=== PATIENT | female | born 1995 | race Caucasian/White ===

== ENCOUNTER 2024-03-15 11:51 | Emergency (ER) | payer OTHER, MEDICAID, SELFPAY ==
[2024-03-15 11:52] VITALS: BMI 34.9
[2024-03-15 12:29] VITALS: BP 138/88; PULSE 80; RESP 18; TEMP 36.7; O2SAT 97; BMI 41.5
--- NOTE | 2024-03-15 12:32 | XR_ITS ---
Examination: Pelvic ultrasound, transabdominal, complete Technique: Transabdominal ultrasound of the pelvis performed using grayscale imaging Date and time of exam: March 15, 2024 1334 hours INDICATIONS: Pelvic pain beginning one week ago FINDINGS: Uterus 9.1 x 4.1 x 5.4 cm No uterine mass or intrauterine gestation Endometrial stripe 0.5 cm Ovaries obscured by bowel gas IMPRESSION: Limited study No uterine mass or intrauterine gestation
[2024-03-15 12:44] LABS: Basophils % (Auto) 0 % (0-2.5); Eosinophils # (Auto) 0.1 Thou/mm3 (0.0-0.5); Eosinophils % (Auto) 1 % (0-10); Hematocrit 39.5 % (36.0-46.0); Hemoglobin 13.5 g/dL (12.0-16.0); Immature Granulocytes % (Auto) 0 % (0-0); Immature Granulocytes Auto 0.03 Thou/mm3 (0.00-0.00); Lymphocytes # (Auto) 2.8 Thou/mm3 (1.0-4.8); Lymphocytes % (Auto) 26 % (10-50); Mean Corpuscular HGB Conc 34.2 g/dl (31.0-37.0); Mean Corpuscular Hemoglobin 29.5 pg (25.0-35.0); Mean Corpuscular Volume 86 fL (80-100); Monocytes # (Auto) 0.7 Thou/mm3 (0.0-0.8); Monocytes % (Auto) 6 % (0-12); Neutrophils % (Auto) 66 % (37-80); Nucleated Red Blood Cell % 0 /100 WBC (0); Platelet Count 352 Thou/mm3 (140-440); RDW Standard Deviation 40.6 fL (36.4-46.3); Red Blood Count 4.57 Miln/mm3 (4.00-5.20); White Blood Count 10.6 Thou/mm3 (3.6-11.0)
[2024-03-15 13:04] LABS: Alanine Aminotransferase 19 U/L (10-49); Albumin, Serum 4.7 gm/dL (3.5-5.0); Albumin/Globulin Ratio 1.7 (1.2-2.2); Alkaline Phosphatase 81 U/L (46-116); Anion Gap 8 (7-16); Aspartate Amino Transferase 26 U/L (0-34); BUN/Creatinine Ratio 10 Ratio (12-20); Bilirubin,Total 0.4 mg/dL (0.3-1.2); Blood Urea Nitrogen 9 mg/dL (9-23); Calcium 9.4 mg/dL (8.3-10.6); Calcium (Corrected) 9.4 mg/dL (8.5-10.1); Carbon Dioxide 23.7 mMol/L (20.0-31.0); Chloride 106 mMol/L (98-107); Creatinine (Component) 0.9 mg/dL (0.6-1.3); Estimated Creatinine Clearance 116.7 mL/min (>60); Globulin 2.8 gm/dL (2.3-3.5); Glucose 90 mg/dL (74-106); Lipase 40 U/L (12-53); Osmolality,Calculated 274 (275-295); Potassium 3.9 mMol/L (3.4-5.1); Sodium 138 mMol/L (136-145); Total Protein 7.5 gm/dL (5.7-8.2); eGFR > 60 See Note
[2024-03-15 15:35] VITALS: BP 154/80; PULSE 72; RESP 18; TEMP 36.8; O2SAT 99
[2024-03-15 16:06] LABS: Collection Type, Urine Clean Catch
[2024-03-15 16:10] LABS: Bilirubin,Urine Negative (Negative); Blood,Urine 1+ (Negative); Clarity,Urine Clear (Clear/Hazy); Color,Urine Lt-Yellow (Lt Yel-Yel); Glucose, Urine Negative (Negative); Ketones,Urine 1+ (Negative); Leukocyte Esterase,Urine Positive (Negative); Nitrite,Urine Positive (Negative); Protein,Urine Negative (Neg - Trace); RBC,Urine 3 /hpf (0-3); Specific Gravity,Urine 1.018 (1.001-1.035); Squamous Epithelial Cell,Urine 3 /hpf (0-5); Urobilinogen,Urine Negative mg/dL (0.0-1.0); WBC,Urine 3 /hpf (0-5)
[2024-03-15 16:24] LABS: HCG Qualitative,Urine Negative
[2024-03-15 16:58] LABS: Culture Indicated,Urine Yes
--- NOTE | 2024-03-15 17:22 | EDNOTE_ITS ---
ED Abdominal Pain RME/HPI General Chief Complaint: Abdominal Pain Stated complaint: ABD. PAIN, VAG SPOTING, NAUSEA Time seen by provider: 03/15/24 12:06 Arrival date/time: 03/15/24 11:51 29-year-old female presents to the emergency department today complaints of pelvic pain and vaginal spotting as well as nausea ongoing for the last couple of days Limitations: no limitations Related Data Home Medications ?Medication ?Instructions ?Recorded ?Confirmed desogestrel 0.15 mg-ethinyl 1 tab PO QDAY 12/02/22 12/02/22 estradiol 0.03 mg tablet (Enskyce) hydroxyzine HCl 50 mg tablet 50 mg PO DAILY 12/02/22 12/02/22 sertraline 100 mg tablet 100 mg PO QDAY 12/02/22 12/02/22 Previous Rx's ?Medication ?Instructions ?Recorded acetaminophen 300 mg-codeine 15 mg 1 tab PO Q12H PRN pain #10 tabs 12/03/22 tablet acetaminophen 500 mg tablet 500 mg PO Q6H PRN fever or pain 12/03/22 #20 tabs ibuprofen 600 mg tablet 600 mg PO TID #20 tabs 12/03/22 ciprofloxacin HCl 500 mg tablet 500 mg PO BID 7 days #14 tabs 03/15/24 ibuprofen 600 mg tablet 600 mg PO Q6H #30 tabs 03/15/24 Allergies Allergy/AdvReac Type Severity Reaction Status Date / Time No Known Allergies Allergy Verified 03/15/24 11:54 Review of Systems Review of Systems Systems Reviewed: All systems reviewed, normal except as documented Constitutional Constitutional: Reports system reviewed and no additional complaints, except as documented, Denies fever(s) and Denies headache(s) Eyes Eyes: Reports system reviewed and no additional complaints, except as documented and Denies blurry vision ENT Ears, Nose, Mouth, and Throat: Reports system reviewed and no additional complaints, except as documented, Denies headache(s), Denies nasal congestion and Denies nasal discharge Cardiovascular Cardiovascular: Reports system reviewed and no additional complaints, except as documented, Denies chest pain and Denies dyspnea Respiratory Respiratory: Reports system reviewed and no additional complaints, except as documented, Denies chest congestion, Denies cough and Denies dyspnea Gastrointestinal Gastrointestinal: Reports system reviewed and no additional complaints, except as documented and Denies abdominal pain Genitourinary Genitourinary: Reports system reviewed and no additional complaints, except as documented, Reports abnormal vaginal bleeding, Reports dysuria, Denies flank pain and Reports pelvic pain Integumentary/Breasts Skin/Breast: Reports system reviewed and no additional complaints, except as documented and Denies rash Neurologic Neurologic: Reports system reviewed and no additional complaints, except as documented, Reports as per HPI and Denies headache(s) Past Medical History Past Medical History NEUROLOGIC: Negative Neurological Disorders CARDIAC: Negative Cardiac Disorders ED Exam General Limitations: Present no limitations General appearance: Present alert and in no apparent distress Head Head exam: Present atraumatic, normocephalic and normal inspection Eye Eye exam: Present normal appearance, PERRL and EOMI; Absent conjunctival injection ENT ENT exam: Present normal exam, normal oropharynx and mucous membranes moist Neck Neck exam: Present normal inspection, full ROM and trachea midline Chest Chest inspection: Present normal inspection and symmetric chest wall rise Respiratory Respiratory exam: Present normal lung sounds bilaterally; Absent respiratory distress Cardiovascular Cardiovascular exam: Present regular rate, normal rhythm and normal heart sounds Abdominal Exam Abdominal exam: Present soft and normal bowel sounds; Absent distention, tenderness, guarding, rebound or rigidity Extremities Exam Extremities exam: Present normal inspection and full ROM Back Exam Back exam: Present normal inspection and full ROM Neurological Exam Neurological exam: Present alert, oriented X3 and CN II-XII intact Psychiatric Psychiatric exam: Present normal affect and normal mood Skin Skin exam: Present warm, dry, intact and normal color Course Quality Measures none Orders Category Date Time Status US pelvic complete Stat Exams 03/15/24 12:32 Completed CBC Stat Lab 03/15/24 12:36 Completed Chlamydia/GC/TV - PCR Stat Lab 03/15/24 15:46 Received Comprehensive Metabolic Panel Stat Lab 03/15/24 12:36 Completed HCG Qualitative,Urine Stat Lab 03/15/24 15:46 Completed Lipase Stat Lab 03/15/24 12:36 Completed UA, C/S IF [Urinalysis, C/S if Indicated] Stat Lab 03/15/24 15:46 Completed Urine Culture Stat Lab 03/15/24 15:46 Received Vital Signs Vital signs: Vital Signs Temperature 98.1 F 03/15/24 12:29 Pulse Rate 80 03/15/24 12:29 Respiratory Rate 18 03/15/24 12:29 Blood Pressure 138/88 H 03/15/24 12:29 Pulse Oximetry (%) 97 03/15/24 12:29 Oxygen Delivery Method Room Air 03/15/24 12:29 O2 saturation 97% room air within normal limits Abdominal Pain MDM MDM Narrative MDM Narrative:: 29-year-old female presents to the emergency department today complaints of pelvic pain and vaginal spotting as well as nausea ongoing for the last couple of days On exam patient does not appear ill or toxic patient's not appear in acute distress Lab work obtained no acute emergent findings noted Imaging obtained no acute emergent findings noted Patient be treated with course of antibiotics and pain medication GC and Chlamydia is pending Patient discharged home in no distress to follow-up with primary care doctor in the next 24 to 48 hours and for any worsening symptoms to return to the ER immediately Patient data External records reviewed:: [facility] previous records Clinical information provided by:: patient Social determinants that could affect healthcare access:: none Patient has the following chronic illnesses:: None How is presenting disease/condition affected by chronic disease/condition?: no chronic disease Evaluation data The following diagnostics were reviewed and interpreted by me:: lab results and radiology exam(s) Lab and/or radiology exams considered but not ordered:: Labs radiology obtained Interpretation Summary: Reviewed by me Medications / Prescriptions Medications or Prescriptions considered but not ordered:: Given Medication administrations:: Given Consultations Consultation(s) initiated? (list below): No Diagnosis Differential diagnosis abdominal pain: abdominal pain, constipation, diverticulitis, endometriosis, gastroenteritis and pancreatitis Most likely diagnosis given after review of the tests above:: Abdominal pain Admission Indicated Admission indicated?: not indicated Admission Request Was there a request for admission?: No Disposition Plan Disposition Plan: Discharge Discharge Attestation Discharge Attestation: The patient and all family members were given an opportunity to ask questions and understood the discharge instructions. Discharge instructions specifically effects, indications for sooner follow up or return to the emergency department, and the expected course of current diagnosis. Patient condition: Stable Discharge Plan Plan Patient Disposition: HOME (Self Care) Disposition Comment: Stable Prescriptions/Referrals Prescriptions/Med Rec: New ciprofloxacin HCl 500 mg tablet 500 mg PO BID 7 Days Qty: 14 0RF ibuprofen 600 mg tablet 600 mg PO Q6H Qty: 30 0RF No Action desogestrel-ethinyl estradiol [Enskyce] 0.15-0.03 mg Tablet 1 tab PO QDAY sertraline 100 mg Tablet 100 mg PO QDAY hydroxyzine HCl 50 mg Tablet 50 mg PO DAILY acetaminophen-codeine 300-15 mg tablet 1 tab PO Q12H PRN (Reason: pain) Qty: 10 0RF ibuprofen 600 mg tablet 600 mg PO TID Qty: 20 0RF acetaminophen 500 mg tablet 500 mg PO Q6H PRN (Reason: fever or pain) Qty: 20 0RF Referrals: Boone Fernandez MD [Primary Care Provider] - 03/16/24 Problem List Clinical Impression: Abdominal pain, Pelvic pain Patient/Caregiver Discharge Instructions Education Materials: Abdominal Pain Additional Instructions: Please follow up with your primary care doctor in the next 24-48hrs for any worsening symptoms return here immediately Print Language: Swedish Stand Alone Forms: Julianne Award Info., Work/School Release, Patient Portal Info Letter 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 Vera
[2024-03-16 17:05] LABS: Chlamydia trachomatis PCR Negative (Not Detect); Neisseria Gonorrhoeae DNA PCR Negative (Not Detect); Trichomonas Negative (Negative)
== END 2024-03-15 18:19 | disposition home or self-care (01) ==
PROVIDERS: Nurse Practitioner Primary Care; Emergency Provider Emergency Medicine; PCP Family Medicine
DX: R10.2 Pelvic and perineal pain (principal)
CPT/HCPCS: 36415; 76856; 80053; 81001; 81025; 83690; 85025; 87086; 87491; 87591; 87661; 99284

== ENCOUNTER 2024-08-03 16:39 | Observation (INO) | payer OTHER, MEDICAID, SELFPAY ==
[2024-08-03 16:57] VITALS: BP 123/85; PULSE 130; RESP 20; TEMP 39.3; O2SAT 97
--- NOTE | 2024-08-03 17:12 | XR_ITS ---
Examination: PA lateral chest 2 views TECHNIQUE: Upright PA and lateral chest 2 views Standing flank line August 03, 2024 10:19 PM INDICATIONS: Vomiting and fever today. FINDINGS: Normal heart size. Lungs are clear. The osseous structures are intact IMPRESSION: No active disease
--- NOTE | 2024-08-03 17:12 | PD.EDRME ---
Rapid Medical Screening Exam RME Arrival date/time: 08/03/24 16:39 29-year-old female presents to the Emergency Department for complaint of nausea and vomiting and abdominal pain as well as fever today Chief Complaint: Fever Time Seen by Provider: 08/03/24 16:54 Vital signs: Vital Signs Temperature 102.8 F H 08/03/24 16:57 Pulse Rate 130 H 08/03/24 16:57 Respiratory Rate 20 08/03/24 16:57 Blood Pressure 123/85 H 08/03/24 16:57 Pulse Oximetry (%) 97 08/03/24 16:57 Oxygen Delivery Method Room Air 08/03/24 16:57
[2024-08-03 17:18] VITALS: TEMP 39.3
[2024-08-03] MEDS: ACETAMINOPHEN 500 MG TABLET 1000 MG PO (17:18)
[2024-08-03] MEDS: SODIUM CHLORIDE 0.9% 1000 ML 1,000 ML 999 ML IV (18:06)
[2024-08-03] MEDS: ONDANSETRON INJ 2 MG/ML INJ 2 ML 4 MG IV (18:06)
[2024-08-03 18:17] VITALS: BP 113/72; PULSE 102; RESP 26; TEMP 37.6; O2SAT 96
[2024-08-03 18:20] LABS: Basophils % (Auto) 0 % (0-2.5); Eosinophils % (Auto) 0 % (0-10); Hematocrit 42.5 % (36.0-46.0); Hemoglobin 15.1 g/dL (12.0-16.0); Immature Granulocytes % (Auto) 0 % (0-0); Immature Granulocytes Auto 0.03 Thou/mm3 (0.00-0.00); Lymphocytes # (Auto) 0.5 Thou/mm3 (1.0-4.8); Lymphocytes % (Auto) 4 % (10-50); Mean Corpuscular HGB Conc 35.5 g/dl (31.0-37.0); Mean Corpuscular Hemoglobin 29.8 pg (25.0-35.0); Mean Corpuscular Volume 84 fL (80-100); Monocytes # (Auto) 0.3 Thou/mm3 (0.0-0.8); Monocytes % (Auto) 3 % (0-12); Neutrophils # (Auto) 10.5 Thou/mm3 (1.8-7.7); Neutrophils % (Auto) 93 % (37-80); Nucleated Red Blood Cell % 0 /100 WBC (0); Platelet Count 315 Thou/mm3 (140-440); RDW Standard Deviation 39.7 fL (36.4-46.3); Red Blood Count 5.06 Miln/mm3 (4.00-5.20); White Blood Count 11.4 Thou/mm3 (3.6-11.0)
[2024-08-03 18:32] LABS: Alanine Aminotransferase 20 U/L (10-49); Albumin, Serum 4.4 gm/dL (3.5-5.0); Albumin/Globulin Ratio 1.8 (1.2-2.2); Alkaline Phosphatase 100 U/L (46-116); Anion Gap 10 (7-16); Aspartate Amino Transferase 20 U/L (0-34); BUN/Creatinine Ratio 10 Ratio (12-20); Bilirubin,Total 0.7 mg/dL (0.3-1.2); Blood Urea Nitrogen 9 mg/dL (9-23); Calcium 8.7 mg/dL (8.3-10.6); Calcium (Corrected) 8.7 mg/dL (8.5-10.1); Carbon Dioxide 24.3 mMol/L (20.0-31.0); Chloride 107 mMol/L (98-107); Creatinine (Component) 0.9 mg/dL (0.6-1.3); Estimated Creatinine Clearance 118.9 mL/min (>60); Globulin 2.4 gm/dL (2.3-3.5); Glucose 128 mg/dL (74-106); Lipase 27 U/L (12-53); Osmolality,Calculated 281 (275-295); Potassium 3.7 mMol/L (3.4-5.1); Procalcitonin 0.18 ng/ml (0.0-0.49); Sodium 141 mMol/L (136-145); Total Protein 6.8 gm/dL (5.7-8.2); eGFR > 60 See Note
--- NOTE | 2024-08-03 18:39 | XR_ITS ---
Examination: CT abdomen with intravenous contrast CT pelvis with intravenous contrast 2-D coronal reconstructions 2-D sagittal reconstructions Date and time of exam:August 03, 2024 2107 hours Comparison March 28, 2023 INDICATION: Vomiting beginning 13 hours ago. CTDI: vol (mGy) 15.6 DLP: (mGycm) 901 Technique: Multiple axial sections of the abdomen and pelvis have been obtained. 64 slice high-resolution scanner used. 3 mm axial sections have been obtained, post intravenous injection 60 cc Isovue 370 2-D sagittal, coronal reconstructions obtained. Low dose protocols were performed. One or more of the following dose reduction techniques were used; automated exposure control, adjustment of the mA and/or KV according to patient size, use of iterative reconstruction technique. Findings: No focal liver or splenic lesions No gallstones No pancreatic or adrenal mass No renal or ureteral calculi, no hydronephrosis. No bowel obstruction Normal appendix No diverticulitis Urinary bladder intact No pelvic mass IMPRESSION: Normal appendix. No bowel obstruction or acute process in the abdomen
--- NOTE | 2024-08-03 18:42 | PD.EDADULT ---
ED General RME/HPI General Chief complaint: Fever Stated complaint: VOMITING X 13 HRS, FEVER 101.4, ABD CRAMPING Time Seen by Provider: 08/03/24 16:54 Arrival date/time: 08/03/24 16:39 RME / HPI RME / HPI narrative: This patient is a 29-year-old female with no significant past medical history presented to the ED on 08/03/2024 with chief complaint of 1 day history of nausea/vomiting/fever spikes associated with abdominal discomfort. Patient reported that she ate yesterday from [employer] and started having vomiting episodes. She almost vomited more than 10?15 episodes with some blood. She also has abdominal discomfort mainly in the epigastric region and lower pelvic tenderness. She rated her pain as 2/10 since she got pain medication it is crunching intermittent in nature per patient associated with movement and radiating to her back. She denies any loose stools and her last bowel movement was yesterday which was formed stool. She is not passing gas today. She has for mild chest discomfort 5/10 pressure-like but denies any shortness of breath. She has some low pelvic pressure however denied any burning or dysuria. Her last menstrual period was 2 months ago and she stopped taking control pills 6 months ago. She reported her menstrual period to be irregular last 23 days with spotting only. She does not follow with a PCP. Vitals revealed soft blood pressure 123/85, tachycardia with heart rate 130s, respiratory rate 20, fever spike of 102.8. Labs were significant for leukocytosis white count 11.4, hemoglobin 15.1. Platelet count 315. Chemistry panel showed sodium 141, potassium 3.7, chloride 107. BUN 9 and creatinine 0.9. GFR 60. Blood glucose 128. Lactic acid 2.0. Liver enzymes were unremarkable. Lipase and procalcitonin was negative. Urinalysis and chest x-ray are pending. Patient met 3/4 SIRS criteria with fever, tachycardia and leukocytosis. Patient received 2 L bolus of fluids x 1, Zofran, morphine and a dose of Zosyn. Differentials include sepsis likely related to intractable vomiting related to possible GI infection along with dehydration. CT abdomen pelvis with contrast showed no acute pathology. urinalysis and beta-hCG were negative. EKG showed sinus rhythm with QTc 459. Some T wave inversions in V1/V2.Chest x-ray showed no active disease.Flu was negative. Admitting hospitalist team were notified and patient will be admitted. PMH: Nonsignificant PSH: Laparoscopic procedure for endometriosis SH: Drinks alcohol socially only. Denies smoking or illicit drug use. Allergies: NKDA Home medications: Not taking any medications currently MD complaint: Nausea/vomiting and abdominal pain Onset (ago): day(s) Location: chest, back and abdomen Radiation: back Severity: moderate Severity scale (1-10): 7 Quality: crushing Consistency: intermittent Relieving factors: medication (Tylenol) Exacerbating factors: eating Associated symptoms: chest pain, fever/chills, nausea/vomiting, shortness of breath and weakness Related Data Home Medications ?Medication ?Instructions ?Recorded ?Confirmed desogestrel 0.15 mg-ethinyl 1 tab PO QDAY 12/02/22 12/02/22 estradiol 0.03 mg tablet (Enskyce) hydroxyzine HCl 50 mg tablet 50 mg PO DAILY 12/02/22 12/02/22 sertraline 100 mg tablet 100 mg PO QDAY 12/02/22 12/02/22 Previous Rx's ?Medication ?Instructions ?Recorded acetaminophen 300 mg-codeine 15 mg 1 tab PO Q12H PRN pain #10 tabs 12/03/22 tablet acetaminophen 500 mg tablet 500 mg PO Q6H PRN fever or pain 12/03/22 #20 tabs ibuprofen 600 mg tablet 600 mg PO TID #20 tabs 12/03/22 ibuprofen 600 mg tablet 600 mg PO Q6H #30 tabs 03/15/24 Allergies Allergy/AdvReac Type Severity Reaction Status Date / Time No Known Allergies Allergy Verified 08/03/24 16:42 Review of Systems Review of Systems Systems Reviewed: All systems reviewed, normal except as documented Past Medical History Past Medical History NEUROLOGIC: Negative Neurological Disorders CARDIAC: Negative Cardiac Disorders REPRODUCTIVE: Positive Endometriosis Family History FAMILY HISTORY: Positive Family Cardiac Disorders (HTN) ED Exam Narrative Physical exam: GENERAL APPEARANCE: AxOx4, obese female in mild distress due to abdominal pain. HEENT: NC, AT. Dry mucous membrane. EOMI, clear conjunctiva, oropharynx clear. NECK: Supple without lymphadenopathy. No stiffness or restricted ROM. HEART: Sinus tachycardia with regular rhythm, normal S1/S2, no m/r/g LUNGS: CTAB, moving air well. No crackles or wheezes are heard. ABDOMEN: Soft, epigastric and lower pelvic tenderness, nondistended with good bowel sounds heard. BACK: Tenderness in the low back. EXTREMITIES: Without cyanosis, clubbing or edema. NEUROLOGICAL: Grossly nonfocal. Alert and oriented, moving all 4 extremities. CN not formally tested but appear grossly intact. Observed to ambulate with normal gait. Skin: Warm and dry without any rash. Psych: Appropriate mood and affect Course Course Course Narrative: Patient presented with intractable vomiting/nausea associated with abdominal pain from last 1 day. Patient met 3/4 SIRS criteria with fever, tachycardia and leukocytosis. Patient received 2 L bolus of fluids x 1, Zofran, morphine and a dose of Zosyn. Differentials include sepsis likely related to intractable vomiting related to possible GI infection with mild electrolyte disturbance. CT abdomen pelvis with contrast showed no acute pathology. urinalysis and beta-hCG were negative. Admitting hospitalist team were notified and patient will be admitted. Quality Measures none Orders Category Date Time Status Bedside Influenza A&B Antigen Test NOW Care 08/03/24 17:[address] Screening NOW Care 08/03/24 18:39 Active EKG (ED ONLY) *Do not use* NOW Care 08/03/24 18:57 Completed Insert IV NOW Care 08/03/24 18:04 Active Miscellaneous Nursing Order NOW Care 08/03/24 18:42 Active Occult Blood,Stool (Nursing) NOW Care 08/03/24 18:[address] abdomen pelvis w con Stat Exams 08/03/24 18:39 Completed EKG (ED Only) Stat Exams 08/03/24 18:57 Draft XR chest 2V Stat Exams 08/03/24 17:12 Completed Blood Culture (Lab) Stat Lab 08/03/24 18:00 Received CBC Stat Lab 08/03/24 18:00 Completed Comprehensive Metabolic Panel Stat Lab 08/03/24 18:00 Completed HCG Qualitative,Urine Stat Lab 08/03/24 19:30 Completed Lactate (Lactic Acid) Stat Lab 08/03/24 18:00 Completed Lipase Stat Lab 08/03/24 18:00 Completed Magnesium Stat Lab 08/03/24 18:00 Completed Phosphorous Stat Lab 08/03/24 18:00 Completed Procalcitonin Stat Lab 08/03/24 18:00 Completed Urinalysis Stat Lab 08/03/24 19:30 Completed Urine Culture Stat Lab 08/03/24 19:30 Received Acetaminophen Tab [Tylenol ES Tab] Med 08/03/24 17:12 Discontinued 1,000 mg PO X1 ONE Magnesium Sulfate 4 GM Ivpb [Magnesium Sulfate Ivpb] Med 08/03/24 19:02 Active 4 gm in 50 ml IV X1 Morphine Inj Med 08/03/24 18:41 Discontinued 2 mg IVP X1 ONE Ondansetron Inj [Zofran Inj] Med 08/03/24 17:14 Discontinued 4 mg IV X1 ONE Pantoprazole Inj [Protonix Inj] Med 08/03/24 18:39 Discontinued 40 mg IVP X1 ONE Piper/Tazo 3.375 gm Premix [Zosyn] Med 08/03/24 18:39 Discontinued 3.375 gm in 50 ml IV X1 Ringers Lactated 1000 ml [Lactated Ringers] 1,000 ml Med 08/03/24 18:57 Active IV 75 mls/hr Ringers Lactated 1000 ml [Lactated Ringers] 1,000 ml Med 08/03/24 18:31 Discontinued IV 999 mls/hr Sodium Chloride 0.9% 1000 ml [Ns] 1,000 ml Med 08/03/24 17:14 Discontinued IV 999 mls/hr Vital Signs Vital signs: Vital Signs Temperature 102.8 F H 08/03/24 16:57 Pulse Rate 130 H 08/03/24 16:57 Respiratory Rate 20 08/03/24 16:57 Blood Pressure 123/85 H 08/03/24 16:57 Pulse Oximetry (%) 97 08/03/24 16:57 Oxygen Delivery Method Room Air 08/03/24 16:57 Discharge Plan Plan Patient Disposition: Admit Acute Care w/in Hospital Prescriptions/Referrals Prescriptions/Med Rec: No Action desogestrel-ethinyl estradiol [Enskyce] 0.15-0.03 mg Tablet 1 tab PO QDAY sertraline 100 mg Tablet 100 mg PO QDAY hydroxyzine HCl 50 mg Tablet 50 mg PO DAILY acetaminophen-codeine 300-15 mg tablet 1 tab PO Q12H PRN (Reason: pain) Qty: 10 0RF ibuprofen 600 mg tablet 600 mg PO TID Qty: 20 0RF acetaminophen 500 mg tablet 500 mg PO Q6H PRN (Reason: fever or pain) Qty: 20 0RF ibuprofen 600 mg tablet 600 mg PO Q6H Qty: 30 0RF Referrals: No Primary/Family,Physician [Primary Care Provider] - In 1 week Problem List Clinical Impression: Intractable vomiting with nausea, Sepsis, Abdominal pain Patient/Caregiver Discharge Instructions Print Language: Yemeni Stand Alone Forms: Julianne Award Info., Patient Portal Info Letter MDM Narrative Sign Out note: Patient presented with intractable vomiting/nausea associated with abdominal pain from last 1 day. Patient met 3/4 SIRS criteria with fever, tachycardia and leukocytosis. Patient received 2 L bolus of fluids x 1, Zofran, morphine and a dose of Zosyn. Differentials include sepsis likely related to intractable vomiting related to possible GI infection with mild electrolyte disturbance. CT abdomen pelvis with contrast showed no acute pathology. urinalysis and beta-hCG were negative. Admitting hospitalist team were notified and patient will be admitted. Medication Administration(s) Medication Administration History Lactated Ringer's (Lactated Ringers) 1,000 mls @ 75 mls/hr IV .[id number] TESSIE Stop: 09/02/24 18:56 Last Admin: 08/03/24 19:30 Dose: 75 mls/hr Documented By: FUAD Magnesium Sulfate (Magnesium Sulfate Ivpb) 4 gm in 50 mls @ 12.5 mls/hr IV X1 ONE Stop: 08/03/24 23:01 Last Admin: 08/03/24 19:28 Dose: 12.5 mls/hr Documented By: FUAD Discontinued Medications Acetaminophen (Acetaminophen 500 Mg Tablet) 1,000 mg PO X1 ONE Stop: 08/03/24 17:13 Last Admin: 08/03/24 17:18 Dose: 1,000 mg Documented By: CS Sodium Chloride (Ns) 1,000 mls @ 999 mls/hr IV .Q1H1M ONE Stop: 08/03/24 18:14 Last Infusion: 08/03/24 19:13 Dose: Infused Documented By: Admin: 08/03/24 18:06 Dose: 999 mls/hr Documented By: STACI Lactated Ringer's (Lactated Ringers) 1,000 mls @ 999 mls/hr IV .Q1H1M ONE Stop: 08/03/24 19:31 Last Infusion: 08/03/24 20:50 Dose: Infused Documented By: Admin: 08/03/24 19:31 Dose: 999 mls/hr Documented By: FUAD Piperacillin/Tazobactam/Dextrose (Zosyn) 3.375 gm in 50 mls @ 100 mls/hr IV X1 ONE Stop: 08/03/24 19:08 Last Infusion: 08/03/24 20:10 Dose: Infused Documented By: Admin: 08/03/24 19:29 Dose: 100 mls/hr Documented By: FUAD Morphine Sulfate (Morphine Sulf Inj 10 Mg/Ml Vial) 2 mg IVP X1 ONE Stop: 08/03/24 18:42 Last Admin: 08/03/24 19:27 Dose: 2 mg Documented By: FUAD Ondansetron HCl (Ondansetron Inj 2 Mg/Ml Inj 2 Ml) 4 mg IV X1 ONE; Protocol Stop: 08/03/24 17:15 Last Admin: 08/03/24 18:06 Dose: 4 mg Documented By: STACI Pantoprazole Sodium (Pantoprazole Inj 40 Mg Vial) 40 mg IVP X1 ONE Stop: 08/03/24 18:40 Last Admin: 08/03/24 19:28 Dose: 40 mg Documented By: FUAD
--- NOTE | 2024-08-03 18:57 | EKG_ITS ---
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
[2024-08-03 19:00] LABS: Magnesium 1.5 mg/dL (1.6-2.6); Phosphorous 3.3 mg/dL (2.4-5.1)
[2024-08-03] MEDS: MORPHINE SULF INJ 10 MG/ML VIAL 2 MG IVP (19:27)
[2024-08-03] MEDS: Magnesium Sulfate 4 GM Ivpb 4 GM/50 ML BAG IV (19:28)
[2024-08-03] MEDS: PANTOPRAZOLE INJ 40 MG VIAL IVP (19:28)
[2024-08-03] MEDS: PIPER/TAZO 3.375 GM PREMIX 3.375 GM/50 ML BAG IV (19:29)
[2024-08-03] MEDS: RINGERS LACTATED 1000 ML 1,000 ML 75 ML IV (19:30)
[2024-08-03] MEDS: RINGERS LACTATED 1000 ML 1,000 ML 999 ML IV (19:31)
[2024-08-03 19:48] LABS: Collection Type, Urine Clean Catch
[2024-08-03 20:00] VITALS: BP 123/71; PULSE 89; RESP 18; TEMP 37.2; O2SAT 96
[2024-08-03 20:45] LABS: Bacteria,Urine 4+; RBC,Urine < 1 /hpf (0-3); Squamous Epithelial Cell,Urine 1 /hpf (0-5); WBC,Urine 1 /hpf (0-5)
[2024-08-03 20:48] LABS: Bilirubin,Urine Negative (Negative); Blood,Urine Negative (Negative); Clarity,Urine Clear (Clear/Hazy); Color,Urine Lt Yellow (Lt Yel-Yel); Glucose, Urine Negative (Negative); Ketones,Urine Negative (Negative); Leukocyte Esterase,Urine Negative (Negative); Nitrite,Urine Negative (Negative); Protein,Urine Negative (Neg - Trace); Specific Gravity,Urine <= 1.005 (1.001-1.035); Urobilinogen,Urine 0.2 mg/dL (0.0-1.0)
[2024-08-03 20:50] LABS: HCG Qualitative,Urine Negative
[2024-08-03 23:15] VITALS: BP 130/74; PULSE 104; RESP 39; TEMP 38.4; O2SAT 100
--- NOTE | 2024-08-03 23:26 | PD.EVENT ---
Documentation for date of: 08/03/24 Event Note Event Note: A 29-year-old female presented to the ER with the chief complaint of persistent vomiting. The patient described onset of non-stop vomiting starting at 4:00 AM today, continuing until 4:00 PM. She stated she had eaten [employer] the night before and began vomiting early this morning. She also c/o profuse watery diarrhea (all day, no formed stool), fever (up to 101?F for 3 hours), chills, abdominal cramping (diffuse, now improved), and inability to eat. Patient reported feeling very thirsty. She denied shortness of breath, dysuria, burning with urination, and chest pain at rest. She came to the ER due to unrelenting vomiting and concern for dehydration. The patient has a history of endometriosis, status-post laparoscopic surgery 2 years ago. Current medications include none. Social history includes no smoking, alcohol, or recreational drug use. She is otherwise healthy and does not follow with a PCP. In the ER, vital signs recorded as temp 102.8 F, HR 130 bpm, RR 20, BP 123/85 mmHg. Lab revealed WBC 11.4, hemoglobin 15.1, platelets 315, sodium 141, potassium 3.7, chloride 107, BUN 9, creatinine 0.9, glucose 128, lactic acid 2.0. Lipase and procalcitonin were negative. CT abdomen/pelvis showed no acute pathology. EKG showed sinus rhythm with QTc 459 and T wave inversions in V1/V2. Chest x-ray showed no active disease. She received IV fluids, Zofran, morphine, and Zosyn. Admit for observation.
--- NOTE | 2024-08-03 23:29 | ESHP_ITS ---
Documentation for date of: 08/03/24 HPI History of Present Illness History of present illness: Patient is a 29-year-old female, no significant past medical history presents to the emergency room accompanied by spouse, complaining of vomiting for the last 13 hours, fever 101.4 F and abdominal cramping. Patient reported she ate [employer] [place] yesterday and started having vomiting episodes associated with diarrhea, and cramping abdominal pain. Patient reported over 13-15 episodes of vomiting, and other times she would have an episode of retching also have watery bowel movement accident. Also reported slightly blood-tinged sputum after multiple episodes of retching. Abdominal symptoms associated with fever. Patient denied melena, hematemesis, bright red bleeding per rectum, or dysuria. Reported feeling weak in her legs today, but is usually ambulatory at her baseline. In the ER, vitals on presentation showed blood pressure 123/85, heart rate 135- minute, Tmax 100 2.8F, CBC positive for mild leukocytosis, CMP pertinent for hypomagnesemia. Procalcitonin within normal limits, lipase within normal limits, normal liver function and renal function. Lactic acid 2.0, urinalysis shows 4+ bacteria but no leukocytosis. Chest x-ray shows no active disease CT abdomen pelvis shows no acute process down. In the ER patient was given 2 L IV fluid boluses, Zofran, Zosyn and magnesium sulfate, Past medical history: No pertinent past medical history, has a prior surgical history of diagnostic laparoscopy in 2022 to rule out endometriosis, but normal postop findings. No evidence of endometriosis. Family history: History of diabetes mellitus and hypertension. Social history, denies smoking or alcohol use, denies marijuana or drug use. Review of Systems Review of Systems Systems Reviewed: All systems reviewed, normal except as documented Past Medical History Past Medical History NEUROLOGIC: Negative Neurological Disorders CARDIAC: Negative Cardiac Disorders REPRODUCTIVE: Positive Endometriosis Family History FAMILY HISTORY: Positive Family Cardiac Disorders (HTN) Exam Vital Signs Temp Pulse Resp BP Pulse Ox O2 Del Method 101.2 F H 104 H 39 H 130/74 100 Room Air 08/03/24 23:15 08/03/24 23:15 08/03/24 23:15 08/03/24 23:15 08/03/24 23:15 08/03/24 23:15 Narrative Exam General: AOx3, moderately obese female, cooperative but anxious due to constant retching. Skin: Intact, no cyanosis or edema noted. HEENT: Atraumatic/normocephalic, RENATA, neck supple Heart: RRR, S1 and S2 without clicks or murmurs Lungs: Clear on auscultation bilaterally, no difficulty breathing Abdomen: Soft, nontender. Bowel sounds present . Vascular: Peripheral pulses palpable Neuro: No focal neurological deficits noted. Results: Labs 08/03/24 18:00 08/03/24 18:00 Labs: Short CBC 08/03/24 Range/Units 18:00 WBC 11.4 H (3.6-11.0) Thou/mm3 Hgb 15.1 (12.0-16.0) g/dL Hct 42.5 (36.0-46.0) % Plt Count 315 (140-440) Thou/mm3 BMP 08/03/24 18:00 Sodium 141 Potassium 3.7 Chloride 107 Carbon Dioxide 24.3 BUN 9 Creatinine 0.9 Glucose 128 H Calcium 8.7 Liver Function 08/03/24 Range/Units 18:00 Total Bilirubin 0.7 (0.3-1.2) mg/dL AST 20 (0-34) U/L ALT 20 (10-49) U/L Alkaline Phosphatase 100 (46-116) U/L Albumin 4.4 (3.5-5.0) gm/dL Urine 08/03/24 Range/Units 19:30 Urine Color Lt Yellow (Lt Yel-Yel) Urine Clarity Clear (Clear/Hazy) Urine pH 6.0 (5.0-7.0) Ur Specific [place] <= 1.005 (1.001-1.035) Urine Protein Negative (Neg - Trace) Urine Glucose (UA) Negative (Negative) Quality Measures Quality Measures none Medications Home Medications and Allergies Home Medications ?Medication ?Instructions ?Recorded ?Confirmed ?Type desogestrel 0.15 mg-ethinyl 1 tab PO QDAY 12/02/2208/19 History estradiol 0.03 mg tablet (Enskyce) hydroxyzine HCl 50 mg tablet 50 mg PO DAILY 12/02/22 0 12/02/22 History sertraline 100 mg tablet 100 mg PO QDAY 12/02/2208/19 History Allergies Allergy/AdvReac Type Severity Reaction Status Date / Time No Known Allergies Allergy Verified 08/03/24 16:42 Visit Medications Lactated Ringer's (Lactated Ringers) 1,000 mls @ 75 mls/hr IV .[id number] TESSIE Stop: 09/02/24 18:56 Last Admin: 08/03/24 19:30 Dose: 75 mls/hr Discontinued Medications Acetaminophen (Acetaminophen 500 Mg Tablet) 1,000 mg PO X1 ONE Stop: 08/03/24 17:13 Last Admin: 08/03/24 17:18 Dose: 1,000 mg Sodium Chloride (Ns) 1,000 mls @ 999 mls/hr IV .Q1H1M ONE Stop: 08/03/24 18:14 Last Infusion: 08/03/24 19:13 Dose: Infused Lactated Ringer's (Lactated Ringers) 1,000 mls @ 999 mls/hr IV .Q1H1M ONE Stop: 08/03/24 19:31 Last Infusion: 08/03/24 20:50 Dose: Infused Piperacillin/Tazobactam/Dextrose (Zosyn) 3.375 gm in 50 mls @ 100 mls/hr IV X1 ONE Stop: 08/03/24 19:08 Last Infusion: 08/03/24 20:10 Dose: Infused Magnesium Sulfate (Magnesium Sulfate Ivpb) 4 gm in 50 mls @ 12.5 mls/hr IV X1 ONE Stop: 08/03/24 23:01 Last Admin: 08/03/24 19:28 Dose: 12.5 mls/hr Morphine Sulfate (Morphine Sulf Inj 10 Mg/Ml Vial) 2 mg IVP X1 ONE Stop: 08/03/24 18:42 Last Admin: 08/03/24 19:27 Dose: 2 mg Ondansetron HCl (Ondansetron Inj 2 Mg/Ml Inj 2 Ml) 4 mg IV X1 ONE; Protocol Stop: 08/03/24 17:15 Last Admin: 08/03/24 18:06 Dose: 4 mg Pantoprazole Sodium (Pantoprazole Inj 40 Mg Vial) 40 mg IVP X1 ONE Stop: 08/03/24 18:40 Last Admin: 08/03/24 19:28 Dose: 40 mg Assessment & Plan Plan The patient is a 29-year-old female, with no significant past medical history, admitted to the hospital due to complaints of intractable nausea vomiting, watery diarrhea and fever, likely secondary to viral gastroenteritis. #Intractable vomiting #Watery diarrhea #DDx: Viral gastroenteritis versus enteric fever Acute onset of abdominal symptoms after [employer] [place], presentation consistent with stomach flu , likely viral gastroenteritis. No indication for IV antibiotics at this point. Normal renal function, euvolemic status. Urine output is reasonable. ? IV Zofran as needed for vomiting ? IV fluids until patient is able to tolerate p.o. diet ? Started clear liquid diet advance as tolerated ? Place in observation status ? Tylenol for pain Disposition: Observation admit DVT prophylaxis: Pt is ambulatory GI prophylaxis: none Diet: CLD Lines: PIV CODE STATUS: Full Left care discussed with attending Dr. Walt Chauhan PGy 2 Attending Provider Attestation/Addendum Pt was evaluated and plan formulated together with the housestaff team. I have reviewed the residents note above and agree with most of its content. Please refer to the residents note for additional details.
[2024-08-04] VITALS (34 sets, daily range): BP systolic 114–144; BP diastolic 67–79; PULSE 75–113; RESP 7–29; TEMP 37.2–38.4; O2SAT 95–99
[2024-08-04] MEDS: RINGERS LACTATED 1000 ML 1,000 ML 125 ML IV ×2 (00:17→05:33)
[2024-08-04] MEDS: ACETAMINOPHEN 325 MG TABLET 650 MG PO (00:17)
[2024-08-04] MEDS: PIPER/TAZO INJ 3.375 GM in SODIUM CHLORIDE 0.9% (Popper) 50 ML IV (05:34)
[2024-08-04 06:12] LABS: Anion Gap 7 (7-16); BUN/Creatinine Ratio 8 Ratio (12-20); Blood Urea Nitrogen 6 mg/dL (9-23); Calcium 7.5 mg/dL (8.3-10.6); Carbon Dioxide 24.7 mMol/L (20.0-31.0); Chloride 110 mMol/L (98-107); Creatinine (Component) 0.8 mg/dL (0.6-1.3); Estimated Creatinine Clearance 133.8 mL/min (>60); Glucose 114 mg/dL (74-106); Osmolality,Calculated 281 (275-295); Potassium 3.2 mMol/L (3.4-5.1); Sodium 142 mMol/L (136-145); eGFR > 60 See Note
[2024-08-04 07:35] LABS: Basophils % (Auto) 0 % (0-2.5); Eosinophils % (Auto) 0 % (0-10); Hematocrit 33.5 % (36.0-46.0); Hemoglobin 11.8 g/dL (12.0-16.0); Immature Granulocytes % (Auto) 1 % (0-0); Immature Granulocytes Auto 0.03 Thou/mm3 (0.00-0.00); Lymphocytes # (Auto) 1.2 Thou/mm3 (1.0-4.8); Lymphocytes % (Auto) 19 % (10-50); Mean Corpuscular HGB Conc 35.2 g/dl (31.0-37.0); Mean Corpuscular Hemoglobin 29.9 pg (25.0-35.0); Mean Corpuscular Volume 85 fL (80-100); Monocytes # (Auto) 0.7 Thou/mm3 (0.0-0.8); Monocytes % (Auto) 11 % (0-12); Neutrophils # (Auto) 4.5 Thou/mm3 (1.8-7.7); Neutrophils % (Auto) 70 % (37-80); Nucleated Red Blood Cell % 0 /100 WBC (0); Platelet Count 205 Thou/mm3 (140-440); RDW Standard Deviation 40.2 fL (36.4-46.3); Red Blood Count 3.94 Miln/mm3 (4.00-5.20); White Blood Count 6.5 Thou/mm3 (3.6-11.0)
[2024-08-04] MEDS: POTASSIUM CHLORIDE 10% 20 MEQ/15 ML UDC 40 MEQ PO (08:37)
--- NOTE | 2024-08-04 08:38 | ESDS_ITS ---
<Statement entered by Hanane Marroquin MD - 08/04/24 16:29> A 29-year-old female patient with no past medical history presented to the ED due to 10 episodes of diarrhea and 10 episodes of vomiting. She reported that she has been eating from [employer] when she started to experience her symptoms. Denied any other family members with similar symptoms. She reported mild fever however denied any abdominal pain, any bleeding through vomiting or the diarrhea. Patient was given IV fluids, started on IV antibiotics however the patient was adamant about leaving the hospital. On evaluation patient reported that her symptoms has been improving since she woke up and for the last night that this morning she had only had 1 bowel movement. She mentions that this bowel movement was formed and not liquid. She ate her breakfast today and she reported that she tolerated the feeding well. She informed that she will return to the ED if she continued to have symptoms. Patient was discharged and was given the following instructions as below. - Patient's plan and care discussed with my attending, Dr. Luisito Marroquin MD Internal Medicine PGY-2 Planned Discharge Date 08/04/24 DS: Providers Provider Date of admission: 08/03/24 23:14 Primary care physician: Physician No Primary/Family Admitting Provider: Jaciel Godoy MD Attending Provider on Admission: Joe Grove MD Attending Provider on DC: Joe Grove MD Discharging Provider: Arthur Galdamez MD DS: Diagnosis Problem List Completed Was Problem List Reviewed/Reconciled?: Yes Hospital Course Hospital Course Hospital course: The patient is a 29-year-old female, with no significant past medical history, admitted to the hospital due to complaints of intractable nausea vomiting, watery diarrhea and fever, likely secondary to gastroenteritis. For her vomiting , she was treated with Zofran IV. IV fluids. Her potassium is also repleted with KCl 40 mEq p.o. x 1. After this her symptoms resolved. Patient will be discharged on p.o. ciprofloxacin and metronidazole for 5 days. All patient's labs are now returning to her baseline. Patient is now clinically stable and fit for discharge to home. Discharge diagnoses: 1. Intractable vomiting?resolved 2. Likely diarrhea?resolved 3. Gastroenteritis?resolving Discharge plan: ? You have been started on 2 different antibiotics for your colitis, the infection of your colon. Take 1 tablet of each 2 times a day for the next 5 days to complete the course. ? We have put a hold on your hydroxyzine and acetaminophen until you see your primary care doctor. This may interact with the antibiotics. ? We have stopped your ibuprofen tablets. -You are encouraged to keep yourself hydrated. Drink a lot of water and Gat orade. - Follow up with your primary care physician within 1 week of discharge. If you do not have a primary care physician, please follow up with the [facility] Residents clinic ([phone]) ? If you experience any new, worsening or persistent symptoms either call your primary doctor, or dial 911 or present to the emergency department. We are grateful to be able to participate in Ms. Chavarria's care. We wish her the best. Plan of care discussed with Attending Dr. Grove and PGY 2 Dr. Cara Galdamez MD PGY 1 Disclaimer: This note was dictated by speech recognition. Minor errors in nurse staff community health may be present due to voice recognition software. Time Spent with Patient Time attestation: Total time spent providing and/or coordinating discharge services: Time spent: Greater than 30 minutes (39) Exam Vital Signs Temp Pulse Resp BP Pulse Ox O2 Del Method 99.0 F 90 16 144/67 H 97 Room Air 08/04/24 08:30 08/04/24 08:30 08/04/24 08:30 08/04/24 08:30 08/04/24 08:30 08/04/24 08:30 Narrative Exam General: AOx3, moderately obese female, cooperative Skin: Intact, no cyanosis or edema noted. HEENT: Atraumatic/normocephalic, RENATA, neck supple Heart: RRR, S1 and S2 without clicks or murmurs Lungs: Clear on auscultation bilaterally, no difficulty breathing Abdomen: Soft, nontender. Bowel sounds present . Vascular: Peripheral pulses palpable Neuro: No focal neurological deficits noted. Discharge Plan Plan Patient Disposition: HOME (Self Care) Patient condition on transfer: Stable Care Plan Goals: ? You have been started on 2 different antibiotics for your colitis, the infection of your colon. Take 1 tablet of each 2 times a day for the next 5 days to complete the course. ? We have put a hold on your hydroxyzine and acetaminophen until you see your primary care doctor. This may interact with the antibiotics. ? We have stopped your ibuprofen tablets. -You are encouraged to keep yourself hydrated. Drink a lot of water and Gatorade. - Follow up with your primary care physician within 1 week of discharge. If you do not have a primary care physician, please follow up with the [facility] Residents clinic ([phone]) ? If you experience any new, worsening or persistent symptoms either call your primary doctor, or dial 911 or present to the emergency department. Prescriptions/Referrals Prescriptions/Med Rec: New metronidazole 500 mg tablet 500 mg PO BID 5 Days Qty: 10 0RF ciprofloxacin HCl 500 mg tablet 500 mg PO BID 5 Days Qty: 10 0RF Continued desogestrel-ethinyl estradiol [Enskyce] 0.15-0.03 mg Tablet 1 tab PO QDAY sertraline 100 mg Tablet 100 mg PO QDAY acetaminophen-codeine 300-15 mg tablet 1 tab PO Q12H PRN (Reason: pain) Qty: 10 0RF Held hydroxyzine HCl 50 mg Tablet 50 mg PO DAILY Hold Instructions: Resume on 08/10/24. Hold until next week Thursday. It can interact with your antibiotics acetaminophen 500 mg tablet 500 mg PO Q6H PRN (Reason: fever or pain) Qty: 20 0RF Hold Instructions: Until you see pcp Discontinued ibuprofen 600 mg tablet 600 mg PO TID Qty: 20 0RF ibuprofen 600 mg tablet 600 mg PO Q6H Qty: 30 0RF Referrals: No Primary/Family,Physician [Primary Care Provider] - Patient/Caregiver Discharge Instructions Discharge Activity: activity as tolerated Education Materials: ED Diarrhea, Unknown Cause Print Language: Hebrew Stand Alone Forms: Julianne Award Info., Patient Portal Info Letter, Work/Release Restrictions Discharge Order Discharge Orders: Discharge (Routine); Ordered 08/04/24 Ordered By: Atrhur Galdamez Quality Discharge Quality Measures none Attestestation Attestation I attest that I was physically present for the evaluation, physical examination, lab and imaging review of the patient with the residents. I discussed the case with the residents and agree with the findings and plans of care as documented above. Joe Grove MD
== END 2024-08-04 09:20 | disposition home or self-care (01) ==
LOC: SERX 18:57 → SERHOLD 08-04 00:04
PROVIDERS: Nurse Practitioner Primary Care; Student in an Organized Health Care Education/Training Program; Admitting Provider Internal Medicine; Emergency Provider Emergency Medicine; Visit Provider Student in an Organized Health Care Education/Training Program
DX: K52.9 Noninfective gastroenteritis and colitis, unspecified (principal); R11.2 Nausea with vomiting, unspecified; Z01.810 Encounter for preprocedural cardiovascular examination; E83.42 Hypomagnesemia
CPT/HCPCS: 36415; 71046; 74177; 80048; 80053; 81001; 81025; 83605; 83690; 83735; 84100; 84145; 85025; 87040; 87077; 87086; 87186; 87400; 87811; 93005; 96361; 96365; 96366; 96375; 99285; A4649; G0378; J2270; J2405; J2470; J2543; J3475; J7030; J7120; Q9967; A9270